=== PATIENT | female | born 1990 | race Caucasian/White ===

== ENCOUNTER 2024-02-15 19:43 | Emergency (ER) | payer OTHER ==
[~2024-02-15] VITALS: Wt 63.5 kg
[2024-02-15 20:54] LABS: BASO # 0.1 10*3/uL (0.0-0.1); BASO % 0.6 % (0.0-1.0); EOS # 0.1 10*3/uL (0.0-0.4); EOS % 0.7 % (1.0-4.0); HEMATOCRIT 48.6 % (37.0-47.0); LYMPH # 1.9 10*3/uL (1.3-4.4); LYMPH % 20.5 % (27.0-41.0); MEAN CELL VOLUME 82.5 fl (81.0-99.0); MEAN CORPUSCULAR HGB 25.1 pg (27.0-31.0); MEAN CORPUSCULAR HGB CONC 30.5 g/dl (33.0-37.0); MEAN PLATELET VOLUME 9.3 fl (9.6-12.3); MONO % 10.7 % (3.0-9.0); NEUT # 6.2 10*3/uL (2.3-7.9); NEUT % 66.4 % (47.0-73.0); PLATELET COUNT AUTOMATED 531 10*3/uL (130-400); RED BLOOD COUNT 5.89 10*6/uL (4.10-5.10); RED CELL DISTRI WIDTH 19.9 % (0-14.5); WHITE BLOOD COUNT 9.4 10*3/uL (4.8-10.8)
[2024-02-15 21:18] LABS: BUN 22 mg/dl (9-23); CHLORIDE 109 mmol/L (98-107); POTASSIUM 4.6 mmol/L (3.4-5.1)
[2024-02-15] MEDS ORDERED: MEPERIDINE HYDROCHLORIDE 25 MG/1 ML VIAL IM ONE (22:10)
[2024-02-15] MEDS ORDERED: Promethazine Hydrochloride 25 MG/ML VIAL IM ONE (22:15)
[2024-02-15] MEDS ORDERED: methylPREDNISolone sod succ 125 MG VIAL IM ONE (22:20)
== END 2024-02-15 22:35 | disposition home or self-care (01) ==
LOC: ED 19:43
PROVIDERS: Internal Medicine
DX: L88 Pyoderma gangrenosum (principal)

== ENCOUNTER → 2024-02-23 | Outpatient (CLI) | payer OTHER | END | disposition home or self-care (01) | LOC: WOUNDCARE 05:18 | PROVIDERS: ATTEND Nurse Practitioner Family | DX: S80.821A Blister (nonthermal), right lower leg, initial encounter (principal); L97.812 Non-pressure chronic ulcer of other part of right lower leg with fat layer exposed; I10 Essential (primary) hypertension; G43.909 Migraine, unspecified, not intractable, without status migrainosus; F19.10 Other psychoactive substance abuse, uncomplicated; Z87.891 Personal history of nicotine dependence; Z89.412 Acquired absence of left great toe; Z89.422 Acquired absence of other left toe(s); X58.XXXA Exposure to other specified factors, initial encounter; Y93.89 Activity, other specified; Y92.89 Other specified places as the place of occurrence of the external cause; Y99.8 Other external cause status ==

== ENCOUNTER 2024-03-01 14:30 | Inpatient (IN) | payer OTHER ==
[~2024-03-01] VITALS: Ht 137.2 cm; Wt 56.2 kg
[2024-03-01 14:37] VITALS: BP 184/113
[2024-03-01] MEDS ORDERED: CIPROFLOXACIN500 M4 PO (14:38)
[2024-03-01] MEDS ORDERED: CLINDAMYCIN HC300 MG PO (14:38)
[2024-03-01 15:15] LABS: BASO % 0.4 % (0.0-1.0); EOS # 0.1 10*3/uL (0.0-0.4); EOS % 0.7 % (1.0-4.0); HEMATOCRIT 44.8 % (37.0-47.0); MEAN CELL VOLUME 83.1 fl (81.0-99.0); MEAN CORPUSCULAR HGB 25.2 pg (27.0-31.0); MEAN CORPUSCULAR HGB CONC 30.4 g/dl (33.0-37.0); MEAN PLATELET VOLUME 9.1 fl (9.6-12.3); MONO # 1.1 10*3/uL (0.1-1.0); MONO % 10.8 % (3.0-9.0); NEUT # 7.2 10*3/uL (2.3-7.9); NEUT % 74.7 % (47.0-73.0); PLATELET COUNT AUTOMATED 489 10*3/uL (130-400); RED BLOOD COUNT 5.39 10*6/uL (4.10-5.10); RED CELL DISTRI WIDTH 19.9 % (0-14.5); WHITE BLOOD COUNT 9.7 10*3/uL (4.8-10.8)
[2024-03-01 15:27] LABS: ACT PARTIAL THROMBO TIME 26.3 SECONDS (20.0-32.1)
[2024-03-01 15:37] LABS: BUN 23 mg/dl (9-23); CHLORIDE 109 mmol/L (98-107); POTASSIUM 3.8 mmol/L (3.4-5.1)
[2024-03-01] MEDS ORDERED: Piperacillin Sodium/Tazobact 50 ML IV ONE (15:40)
[2024-03-01] MEDS ORDERED: Vancomycin Hydrochloride 250 ML IV ONE (15:40)
[2024-03-01] MEDS ORDERED: Ondansetron Hydrochloride 4 MG/2 ML VIAL IV PRN (16:25)
[2024-03-01] MEDS ORDERED: ACETAMINOPHEN 650 MG SUPP R PRN (16:25)
[2024-03-01] MEDS ORDERED: Acetaminophen/Hydrocodone 5 MG/325 MG TABLET PO PRN (16:25)
[2024-03-01] MEDS ORDERED: Magnesium Hydroxide 30 ML UDC PO PRN (16:25)
[2024-03-01] MEDS ORDERED: MORPHINE Sulfate 2 MG/ML SYR IV PRN (16:25)
[2024-03-01] MEDS ORDERED: BISACODYL 10 MG SUPP R PRN (16:25)
[2024-03-01] MEDS ORDERED: ACETAMINOPHEN 325 MG TAB PO PRN (16:25)
[2024-03-01] MEDS ORDERED: BISACODYL 5 MG TAB PO PRN (16:25)
[2024-03-01 19:18] VITALS: BP 173/111
[2024-03-01 22:00] VITALS: BP 152/76
[2024-03-01] MEDS ORDERED: Piperacillin Sodium/Tazobact 50 ML IV SCH (22:00)
[2024-03-02] VITALS (10 sets, daily range): BP systolic 139–190; BP diastolic 75–129
[2024-03-02 06:35] LABS: BASO # 0.1 10*3/uL (0.0-0.1); BASO % 0.7 % (0.0-1.0); EOS # 0.1 10*3/uL (0.0-0.4); EOS % 1.5 % (1.0-4.0); HEMATOCRIT 43.2 % (37.0-47.0); MEAN CELL VOLUME 83.7 fl (81.0-99.0); MEAN CORPUSCULAR HGB 25.2 pg (27.0-31.0); MEAN CORPUSCULAR HGB CONC 30.1 g/dl (33.0-37.0); MEAN PLATELET VOLUME 9.4 fl (9.6-12.3); MONO # 0.9 10*3/uL (0.1-1.0); MONO % 11.9 % (3.0-9.0); NEUT % 68.9 % (47.0-73.0); PLATELET COUNT AUTOMATED 447 10*3/uL (130-400); RED BLOOD COUNT 5.16 10*6/uL (4.10-5.10); RED CELL DISTRI WIDTH 19.7 % (0-14.5); WHITE BLOOD COUNT 7.2 10*3/uL (4.8-10.8)
[2024-03-02 06:54] LABS: ALKALINE PHOSPHATASE 90 U/L (46-116); BUN 15 mg/dl (9-23); CHLORIDE 108 mmol/L (98-107); POTASSIUM 4.3 mmol/L (3.4-5.1); SGPT/ALT 14 U/L (5-49); TOTAL PROTEIN 6.1 gm/dL (6.0-8.0)
[2024-03-02] MEDS ORDERED: fentaNYL CITRATE 100 MCG/2 ML VIAL IV ONE (10:33)
[2024-03-02] MEDS ORDERED: PROPOFOL 200 MG/20 ML VIAL IV ONE (10:33)
[2024-03-02] MEDS ORDERED: Lactated Ringer's Solution 500 ML IV ONE (12:28)
[2024-03-02] MEDS ORDERED: Vancomycin Hydrochloride 1,000 MG VIAL ONE (12:46)
[2024-03-02] MEDS ORDERED: BUPIVACAINE 0.5% 10 ML VIAL ONE (12:46)
[2024-03-02] MEDS ORDERED: HYDROmorphONE Hydrochloride 0.5 MG/0.5 ML SYRINGE IV PRN (13:45)
[2024-03-02] MEDS ORDERED: HYDROmorphONE Hydrochloride 0.5 MG/0.5 ML SYRINGE ONE (14:01)
[2024-03-03] VITALS: BP 154/89
[2024-03-03 06:27] LABS: BASO # 0.1 10*3/uL (0.0-0.1); BASO % 0.7 % (0.0-1.0); EOS # 0.2 10*3/uL (0.0-0.4); EOS % 1.9 % (1.0-4.0); HEMATOCRIT 46.3 % (37.0-47.0); MEAN CELL VOLUME 84.6 fl (81.0-99.0); MEAN CORPUSCULAR HGB CONC 29.6 g/dl (33.0-37.0); MEAN PLATELET VOLUME 9.2 fl (9.6-12.3); MONO % 10.7 % (3.0-9.0); NEUT # 6.3 10*3/uL (2.3-7.9); NEUT % 68.5 % (47.0-73.0); PLATELET COUNT AUTOMATED 434 10*3/uL (130-400); RED BLOOD COUNT 5.47 10*6/uL (4.10-5.10); RED CELL DISTRI WIDTH 20.2 % (0-14.5); WHITE BLOOD COUNT 9.2 10*3/uL (4.8-10.8)
[2024-03-03 08:00] VITALS: BP 153/96
[2024-03-03] MEDS ORDERED: ZESTRIL20 MG PO (11:33)
[2024-03-03 12:00] VITALS: BP 152/86; BP 153/99
[2024-03-03] MEDS ORDERED: LISINOPRIL 20 MG TAB PO SCH (12:45)
[2024-03-03 16:00] VITALS: BP 142/90; BP 150/95
[2024-03-03 16:07] LABS: ACID FAST SPEC PROCESSING Tissue Grinding (.)
[2024-03-03 20:00] VITALS: BP 139/77
[2024-03-04] VITALS: BP 155/85
[2024-03-04] MEDS ORDERED: CEFEPIME2 GM/100 M IV (02:54)
[2024-03-04 06:51] LABS: BUN 14 mg/dl (9-23); CHLORIDE 108 mmol/L (98-107); POTASSIUM 4.3 mmol/L (3.4-5.1)
[2024-03-04 06:55] LABS: BASO # 0.1 10*3/uL (0.0-0.1); BASO % 0.7 % (0.0-1.0); EOS # 0.2 10*3/uL (0.0-0.4); EOS % 2.3 % (1.0-4.0); HEMATOCRIT 45.6 % (37.0-47.0); MEAN CELL VOLUME 84.1 fl (81.0-99.0); MEAN CORPUSCULAR HGB 24.9 pg (27.0-31.0); MEAN CORPUSCULAR HGB CONC 29.6 g/dl (33.0-37.0); MEAN PLATELET VOLUME 9.4 fl (9.6-12.3); MONO % 12.5 % (3.0-9.0); NEUT # 5.2 10*3/uL (2.3-7.9); NEUT % 63.8 % (47.0-73.0); PLATELET COUNT AUTOMATED 443 10*3/uL (130-400); RED BLOOD COUNT 5.42 10*6/uL (4.10-5.10); RED CELL DISTRI WIDTH 20.1 % (0-14.5); WHITE BLOOD COUNT 8.2 10*3/uL (4.8-10.8)
[2024-03-04] MEDS ORDERED: SODIUM CHLORIDE 0.9% 500 ML IV ONE (07:00)
[2024-03-04] MEDS ORDERED: SODIUM CHLORIDE 0.9% 100 ML BAG IV ONE (07:25)
[2024-03-04] MEDS ORDERED: IOHEXOL 350 MG/ML 100 ML VIAL IV ONE (07:25)
[2024-03-04 08:00] VITALS: BP 168/92; BP 172/112
[2024-03-04] MEDS ORDERED: LISINOPRIL 20 MG TAB PO SCH (10:00)
[2024-03-04 12:00] VITALS: BP 153/96
[2024-03-04 16:00] VITALS: BP 154/92
[2024-03-04 20:00] VITALS: BP 143/97
[2024-03-05] VITALS: BP 135/87
[2024-03-05 08:00] VITALS: BP 155/99
[2024-03-05 12:00] VITALS: BP 153/94
[2024-03-05 16:00] VITALS: BP 174/96
[2024-03-05 20:00] VITALS: BP 100/80; BP 175/100
[2024-03-06] VITALS: BP 156/96
[2024-03-06 05:38] LABS: BUN 18 mg/dl (9-23); CHLORIDE 106 mmol/L (98-107); POTASSIUM 4.5 mmol/L (3.4-5.1)
[2024-03-06 06:16] LABS: BASO # 0.1 10*3/uL (0.0-0.1); BASO % 0.8 % (0.0-1.0); EOS # 0.2 10*3/uL (0.0-0.4); EOS % 2.3 % (1.0-4.0); HEMATOCRIT 44.3 % (37.0-47.0); MEAN CELL VOLUME 83.3 fl (81.0-99.0); MEAN CORPUSCULAR HGB 25.8 pg (27.0-31.0); MEAN CORPUSCULAR HGB CONC 30.9 g/dl (33.0-37.0); MEAN PLATELET VOLUME 9.5 fl (9.6-12.3); MONO % 11.5 % (3.0-9.0); NEUT # 5.3 10*3/uL (2.3-7.9); NEUT % 60.7 % (47.0-73.0); PLATELET COUNT AUTOMATED 419 10*3/uL (130-400); RED BLOOD COUNT 5.32 10*6/uL (4.10-5.10); RED CELL DISTRI WIDTH 20.5 % (0-14.5); WHITE BLOOD COUNT 8.8 10*3/uL (4.8-10.8)
[2024-03-06 08:00] VITALS: BP 128/78
[2024-03-06 12:00] VITALS: BP 142/88
[2024-03-06 16:00] VITALS: BP 130/60
[2024-03-06 20:00] VITALS: BP 109/44
[2024-03-07] VITALS: BP 142/78; BP 150/95
[2024-03-07 06:13] LABS: BUN 20 mg/dl (9-23); CHLORIDE 108 mmol/L (98-107); POTASSIUM 4.7 mmol/L (3.4-5.1)
[2024-03-07 06:28] LABS: BASO # 0.1 10*3/uL (0.0-0.1); BASO % 0.9 % (0.0-1.0); EOS # 0.1 10*3/uL (0.0-0.4); EOS % 1.8 % (1.0-4.0); HEMATOCRIT 43.9 % (37.0-47.0); MEAN CELL VOLUME 82.8 fl (81.0-99.0); MEAN CORPUSCULAR HGB 25.3 pg (27.0-31.0); MEAN CORPUSCULAR HGB CONC 30.5 g/dl (33.0-37.0); MEAN PLATELET VOLUME 9.3 fl (9.6-12.3); MONO # 0.9 10*3/uL (0.1-1.0); MONO % 11.4 % (3.0-9.0); NEUT # 4.7 10*3/uL (2.3-7.9); NEUT % 59.6 % (47.0-73.0); PLATELET COUNT AUTOMATED 426 10*3/uL (130-400); RED CELL DISTRI WIDTH 19.9 % (0-14.5); WHITE BLOOD COUNT 7.8 10*3/uL (4.8-10.8)
[2024-03-07 08:00] VITALS: BP 137/94
[2024-03-07 12:00] VITALS: BP 135/84
[2024-03-07 16:00] VITALS: BP 148/76
[2024-03-07] MEDS ORDERED: HYDROCORTISONE R PRN (18:50)
[2024-03-07 20:00] VITALS: BP 155/79
[2024-03-08] VITALS: BP 157/97
[2024-03-08 06:37] LABS: BASO # 0.1 10*3/uL (0.0-0.1); BASO % 0.6 % (0.0-1.0); EOS # 0.2 10*3/uL (0.0-0.4); EOS % 1.9 % (1.0-4.0); HEMATOCRIT 45.4 % (37.0-47.0); MEAN CELL VOLUME 85.2 fl (81.0-99.0); MEAN CORPUSCULAR HGB 25.7 pg (27.0-31.0); MEAN CORPUSCULAR HGB CONC 30.2 g/dl (33.0-37.0); MEAN PLATELET VOLUME 9.3 fl (9.6-12.3); MONO % 12.6 % (3.0-9.0); NEUT # 4.6 10*3/uL (2.3-7.9); NEUT % 57.3 % (47.0-73.0); PLATELET COUNT AUTOMATED 411 10*3/uL (130-400); RED BLOOD COUNT 5.33 10*6/uL (4.10-5.10); RED CELL DISTRI WIDTH 19.9 % (0-14.5)
[2024-03-08 06:47] LABS: BUN 18 mg/dl (9-23); CHLORIDE 108 mmol/L (98-107); POTASSIUM 4.4 mmol/L (3.4-5.1)
[2024-03-08 08:00] VITALS: BP 129/86
[2024-03-08] MEDS ORDERED: CEFEPIME2 GM/100 M IV (09:32)
[2024-03-08 12:00] VITALS: BP 136/85
[2024-03-08 16:00] VITALS: BP 138/75
[2024-03-08 20:00] VITALS: BP 157/90
[2024-03-08] MEDS ORDERED: Acetaminophen/Hydrocodone 5 MG/325 MG TABLET PO PRN (21:00)
[2024-03-09] VITALS: BP 133/82
[2024-03-09 08:00] VITALS: BP 124/79
[2024-03-09 12:00] VITALS: BP 130/87
[2024-03-09 16:00] VITALS: BP 133/70
[2024-03-09 20:00] VITALS: BP 134/71
[2024-03-10] VITALS: BP 130/68
[2024-03-10 08:00] VITALS: BP 157/87
[2024-03-10] MEDS ORDERED: MENTHOL 2% T SCH (10:00)
[2024-03-10 12:00] VITALS: BP 142/77
[2024-03-10 16:00] VITALS: BP 151/90
[2024-03-10 20:00] VITALS: BP 136/90
[2024-03-10] MEDS ORDERED: LEVOFLOXACIN750 M2 PO (20:57)
[2024-03-10] MEDS ORDERED: AMOX-CLAV 875-1 EACH PO (20:57)
[2024-03-11] VITALS: BP 138/85
[2024-03-11 08:00] VITALS: BP 110/63
[2024-03-11 12:00] VITALS: BP 160/70
[2024-03-12 06:06] LABS: HBSAG Negative (Negative); HEP B CORE AB, IGM Negative (Negative); HEPATITIS C ANTIBODY Non Reactive (Non Reactive)
== END 2024-03-11 16:29 | disposition home or self-care (01) | DRG 576 ==
LOC: ED 14:30 → EDHOLD 15:58 → 4E 15:58
PROVIDERS: Internal Medicine; Internal Medicine Infectious Disease; Podiatrist; Student in an Organized Health Care Education/Training Program; ADMIT Internal Medicine; ATTEND Internal Medicine
PROC: 0HRMXK3 Replacement of Right Foot Skin with Nonautologous Tissue Substitute, Full Thickness, External Approach (ICD-10-PCS; principal; 2024-03-02)
PROC: 0KBS0ZZ Excision of Right Lower Leg Muscle, Open Approach (ICD-10-PCS; 2024-03-02)
PROC: 2W1LX6Z Compression of Right Lower Extremity using Pressure Dressing (ICD-10-PCS; 2024-03-02)
PROC: 05HC33Z Insertion of Infusion Device into Left Basilic Vein, Percutaneous Approach (ICD-10-PCS; 2024-03-09)
PROC: B54NZZA Ultrasonography of Left Upper Extremity Veins, Guidance (ICD-10-PCS; 2024-03-09)
DX: L88 Pyoderma gangrenosum (principal); K27.5 Chronic or unspecified peptic ulcer, site unspecified, with perforation; L97.818 Non-pressure chronic ulcer of other part of right lower leg with other specified severity; I73.9 Peripheral vascular disease, unspecified; D75.839 Thrombocytosis, unspecified; G62.9 Polyneuropathy, unspecified; I10 Essential (primary) hypertension; E87.8 Other disorders of electrolyte and fluid balance, not elsewhere classified; D75.1 Secondary polycythemia; F15.10 Other stimulant abuse, uncomplicated; B96.20 Unspecified Escherichia coli [E. coli] as the cause of diseases classified elsewhere; B99.8 Other infectious disease; G43.809 Other migraine, not intractable, without status migrainosus; Z87.891 Personal history of nicotine dependence; Y93.89 Activity, other specified; Y92.89 Other specified places as the place of occurrence of the external cause; Y99.8 Other external cause status; Z89.432 Acquired absence of left foot; Z82.49 Family history of ischemic heart disease and other diseases of the circulatory system

== ENCOUNTER → 2024-03-01 | Outpatient (CLI) | payer OTHER ==
[~2024-03-01] MED LIST: CIPROFLOXACIN500 M4 PO; CLINDAMYCIN HC300 MG PO
== END | disposition home or self-care (01) ==
LOC: WOUNDCARE 00:55
PROVIDERS: ATTEND Nurse Practitioner Family
DX: S80.821D Blister (nonthermal), right lower leg, subsequent encounter (principal); L97.812 Non-pressure chronic ulcer of other part of right lower leg with fat layer exposed; I10 Essential (primary) hypertension; G43.909 Migraine, unspecified, not intractable, without status migrainosus; F19.10 Other psychoactive substance abuse, uncomplicated; Z87.891 Personal history of nicotine dependence; Z89.412 Acquired absence of left great toe; Z89.422 Acquired absence of other left toe(s); X58.XXXD Exposure to other specified factors, subsequent encounter

== ENCOUNTER 2024-04-17 18:59 | Emergency (ER) | payer OTHER ==
[~2024-04-17] VITALS: Ht 137.1 cm; Wt 52.6 kg
[~2024-04-17 18:59] MED LIST changes: +AMOX-CLAV 875-1 EACH PO; +CEFEPIME2 GM/100 M IV; +LEVOFLOXACIN750 M2 PO; +ZESTRIL20 MG PO
[2024-04-17] MEDS ORDERED: ACETAMINOPHEN 325 MG TAB PO ONE (19:55)
[2024-04-17 19:56] LABS: BASO % 0.4 % (0.0-1.0); EOS # 0.1 10*3/uL (0.0-0.4); EOS % 1.1 % (1.0-4.0); MEAN CELL VOLUME 84.7 fl (81.0-99.0); MEAN CORPUSCULAR HGB 25.7 pg (27.0-31.0); MEAN CORPUSCULAR HGB CONC 30.4 g/dl (33.0-37.0); MONO # 0.8 10*3/uL (0.1-1.0); MONO % 9.1 % (3.0-9.0); NEUT # 7.2 10*3/uL (2.3-7.9); NEUT % 77.8 % (47.0-73.0); PLATELET COUNT AUTOMATED 449 10*3/uL (130-400); RED BLOOD COUNT 6.26 10*6/uL (4.10-5.10); RED CELL DISTRI WIDTH 18.7 % (0-14.5); WHITE BLOOD COUNT 9.3 10*3/uL (4.8-10.8)
[2024-04-17 20:26] LABS: BUN 12 mg/dl (9-23); CHLORIDE 107 mmol/L (98-107)
== END 2024-04-17 23:02 | disposition home or self-care (01) ==
LOC: ED 18:59
PROVIDERS: Nurse Practitioner Family
DX: S80.921A Unspecified superficial injury of right lower leg, initial encounter (principal); E78.00 Pure hypercholesterolemia, unspecified; I10 Essential (primary) hypertension; F15.10 Other stimulant abuse, uncomplicated; F12.90 Cannabis use, unspecified, uncomplicated; Z88.8 Allergy status to other drugs, medicaments and biological substances; Z87.442 Personal history of urinary calculi; Z98.890 Other specified postprocedural states; Z87.891 Personal history of nicotine dependence; X58.XXXA Exposure to other specified factors, initial encounter; Y93.89 Activity, other specified; Y92.89 Other specified places as the place of occurrence of the external cause; Y99.8 Other external cause status